=== PATIENT | male | born 1970 | race Caucasian/White ===

== ENCOUNTER 2022-05-21 09:41 | Inpatient (IN) ==
[2022-05-21] MEDS ORDERED: IOPAMIDOL 100 ML BOTTLE IV ONE (09:42)
[2022-05-21] MEDS ORDERED: ALBUTEROL SULFATE 2.5 MG/3 ML NEBULIZER NEB ONE (10:37)
[2022-05-21] MEDS ORDERED: DEXAMETHASONE 10 MG/ML VIAL IV ONE (10:37)
[2022-05-21] MEDS ORDERED: AZITHROMYCIN 500 MG in DEXTROSE 5% IN WATER 250 ML IV ONE (10:37)
--- NOTE | 2022-05-21 10:40 | Emergency Department Note ---
HPI General Chief complaint: Cold/Flu Symptoms Stated complaint: sob/flu Time Seen by Provider: 05/21/22 10:01 Source: patient Mode of arrival: ambulatory Limitations: no limitations History of Present Illness HPI Narrative: Narrative: This 52 year old, intermediate frame tender COPD patient, presents complaining of worsening shortness of breath since last night. He states his albuterol inhalers have not been able to "break it". He denies fever sweats or chills but does complain of increased productivity of his cough. He is complaining of shortness of breath at rest as well as with exertion. He denies any chest pain or palpitations. Related Data Home Medications Medication Instructions Recorded Confirmed gabapentin 400 mg capsule 400 mg PO BID 10/25/21 01/06/22 Allergies Allergy/AdvReac Type Severity Reaction Status Date / Time No Known Drug Allergies Allergy Verified 05/21/22 09:52 Review of Systems ROS ROS Narrative: Narrative: All systems ED: reviewed and negative except as stated. [facility] Narrative Patient History Narrative: Narrative: Medical/Surgical/Family History All Active Problems (Updated 01/06/22 @ 10:18 by Karine Zavala PA-C) Foot ulceration (Acute) Post-op pain (Acute) Cellulitis of right foot (Acute) Arterial stenosis (Acute) Exam Narrative Narrative: Narrative:General: No acute distress alert and oriented x3 answers questions cogently. Skin: Well perfused and hydrated without exanthem. Lungs: Moderate air movement. Positive expiratory wheezes heard bilaterally. No rhonchi or rails. CV: Regular rate and rhythm without murmurs clicks rubs or gallops. Periphery: No peripheral edema. General Limitations: no limitations Course Vital Signs Vital signs: Vital Signs Temperature 101.6 F H 05/21/22 09:48 Pulse Rate 124 H 05/21/22 09:48 Respiratory Rate 30 H 05/21/22 09:48 Blood Pressure 93/66 05/21/22 09:48 Pulse Oximetry (%) 94 05/21/22 09:48 Oxygen Delivery Method 05/21/22 09:48 Temperature 100.3 F H 05/21/22 13:01 Pulse Rate 104 H 05/21/22 15:31 Respiratory Rate 20 05/21/22 15:54 Blood Pressure 112/59 05/21/22 15:31 Pulse Oximetry (%) 93 05/21/22 15:54 Oxygen Delivery Method 05/21/22 15:54 Oxygen Flow Rate (L/min) 3 05/21/22 15:54 MDM MDM Narrative Medical decision making narrative: Narrative:Pulmonary parenchymal windows show mild centrilobular emphysema consisting of chronic bronchitis with elevated lung volumes wall thickening/dilatation of bronchi. There are scattered tiny bullae predominantly within the upper lobes and also scattered scarring throughout both lungs. A moderate vague groundglass infiltrate has developed in the inferior right lower lobe with atelectasis along the minor fissure. Moderate patchy groundglass infiltrate is also developed in the lingular region. No nodules identified. The pleural spaces are unremarkable-no effusions. Mediastinal windows show the heart is grossly normal in size and configuration. The pulmonary arteries are normal diameter and well-opacified without evidence of embolus. Thoracic aorta is also normal diameter and well-opacified. Mediastinal adenopathy is stable since chest CT nearly one year prior: 2.6 cm right suprahilar node, 2.5 cm subcarinal node and 2-3 lymph nodes the right paratracheal region ranging up to 14 mm. Esophagus is grossly normal. Two nodules inferior right thyroid lobe 3 cm and 2.5 cm with calcifications are stable. There are almost certainly benign adenomas. Bones and soft tissues the chest wall are normal. Images through the superior abdomen are unremarkable. IMPRESSION: 1. No evidence of pulmonary embolus. 2. Moderate, vague, groundglass infiltrates in the inferior right lower lobe and lingula. Suspect infection or, less likely, aspiration. 3. Mild centrilobular emphysema. 4. Mediastinal adenopathy stable since chest CT nearly one year prior and almost certainly benign. 5. Two inferior right thyroid nodules are stable and most likely benig The patient's diagnoses would be COPD exacerbation and pneumonia. He has been treated with azithromycin but is satting 88% on 2 L he will need to come into the hospital. Sepsis Sepsis Identified: No Lab Data Labs: Lab Results 05/21/22 Range/Units 13:19 D-Dimer 0.85 H (0.27-0.50) ug/mL ED POC Tests ED POC Tests: CM - Influenza A Negative CM - Influenza B Negative CM - SARS Antigen Negative Discharge Plan Patient/Caregiver Discharge Instructions Pt seen by QUALITY TECHNICIAN/PA only: No Patient Disposition: Xfer Acute [facility] Follow up with: No,PCP [Primary Care Provider] - Prescriptions: No Action gabapentin 400 mg capsule 400 mg PO BID
[2022-05-21] MEDS ORDERED: MAGNESIUM SULFATE 8.12 MEQ/2 ML VIAL IV ONE (10:41)
[2022-05-21] MEDS ORDERED: MAGNESIUM SULFATE 8.12 MEQ in DEXTROSE 5% IN WATER 50 ML IV ONE (10:43)
[2022-05-21] MEDS ORDERED: ACETAMINOPHEN 325 MG TABLET PO ONE (11:30)
--- NOTE | 2022-05-21 11:43 | XRay Report ---
CLINICAL INFORMATION: COPD COMPARISON: 06/14/2021 TECHNIQUE: Portable FINDINGS: The heart size, mediastinum and pulmonary vessels are unremarkable. Minor bibasilar atelectasis noted.. There are no effusions. The bones and soft tissues are within normal limits. IMPRESSION: Normal chest. Interpreted and Authenticated by: Wade Hutchins 05/21/22
[2022-05-21] MEDS ORDERED: IPRATROPIUM/ALBUTEROL 3 ML AMPUL.NEB NEB ONE (13:34)
--- NOTE | 2022-05-21 15:40 | Cat Scan Report ---
CLINICAL INFORMATION: Elevated d-dimer and dyspnea COMPARISON: Chest CT 06/15/2021. TECHNIQUE: 80ml of Isovue-370 were injected intravenously. Using SmartPrep to maximize pulmonary artery opacification, .625mm helical slices were obtained from the lung apices through the lung bases. Following reconstruction, 2.5 mm sagittal, coronal, and axial reformations were processed. The exam was reviewed at mediastinal, lung, and bone windows. The exam was performed using radiation dose optimization techniques including, but not limited to, automated exposure control, adjustment of the mA and/or kV according to patient size and use of iterative reconstruction technique. FINDINGS: Pulmonary parenchymal windows show mild centrilobular emphysema consisting of chronic bronchitis with elevated lung volumes wall thickening/dilatation of bronchi. There are scattered tiny bullae predominantly within the upper lobes and also scattered scarring throughout both lungs. A moderate vague groundglass infiltrate has developed in the inferior right lower lobe with atelectasis along the minor fissure. Moderate patchy groundglass infiltrate is also developed in the lingular region. No nodules identified. The pleural spaces are unremarkable-no effusions. Mediastinal windows show the heart is grossly normal in size and configuration. The pulmonary arteries are normal diameter and well-opacified without evidence of embolus. Thoracic aorta is also normal diameter and well-opacified. Mediastinal adenopathy is stable since chest CT nearly one year prior: 2.6 cm right suprahilar node, 2.5 cm subcarinal node and 2-3 lymph nodes the right paratracheal region ranging up to 14 mm. Esophagus is grossly normal. Two nodules inferior right thyroid lobe 3 cm and 2.5 cm with calcifications are stable. There are almost certainly benign adenomas. Bones and soft tissues the chest wall are normal. Images through the superior abdomen are unremarkable. IMPRESSION: 1. No evidence of pulmonary embolus. 2. Moderate, vague, groundglass infiltrates in the inferior right lower lobe and lingula. Suspect infection or, less likely, aspiration. 3. Mild centrilobular emphysema. 4. Mediastinal adenopathy stable since chest CT nearly one year prior and almost certainly benign. 5. Two inferior right thyroid nodules are stable and most likely benign. Interpreted and Authenticated by: Wade Hutchins 05/21/22
[2022-05-21 17:24] LABS: Basophils # (Auto) 0.05 K/mcL (0.00-0.30); Basophils % (Auto) 0.5 % (0.0-2.0); Eosinophils # (Auto) 0.01 K/mcL (0.00-0.70); Eosinophils % (Auto) 0.1 % (0.0-7.0); Hematocrit 42.5 % (40.1-51.0); Hemoglobin 14.4 g/dL (13.7-17.5); Lymphocytes # (Auto) 0.96 K/mcL (1.50-4.80); Lymphocytes % (Auto) 9.6 % (15.5-49.0); Mean Cell Volume 91.4 fL (80.0-100.0); Mean Corpuscular HGB Conc 33.9 g/dL (31.0-36.0); Mean Platelet Volume 9.5 fL (8.8-12.5); Monocytes # (Auto) 1.03 K/mcL (0.10-0.90); Monocytes % (Auto) 10.3 % (1.0-12.0); Neutrophils % (Auto) 79.1 % (38.0-78.0); Platelet Count 312 K/mcL (140-440); RBC 4.65 M/mcL (4.63-6.08); Red Cell Distribution Width 14.1 % (11.5-14.5)
--- NOTE | 2022-05-21 17:31 | Emergency Department Note ---
HPI General Chief complaint: Cold/Flu Symptoms Stated complaint: sob/flu Time Seen by Provider: 05/21/22 10:01 Source: patient Mode of arrival: ambulatory Limitations: no limitations History of Present Illness HPI Narrative: Narrative: Resents complaining of increased shortness of breath and cough over the last 24 to 48 hours. He denies any chest pain or palpitations. Has a history of COPD he has a nebulizer machine at home but no oxygen. Related Data Home Medications Medication Instructions Recorded Confirmed gabapentin 400 mg capsule 400 mg PO BID 10/25/21 01/06/22 Allergies Allergy/AdvReac Type Severity Reaction Status Date / Time No Known Drug Allergies Allergy Verified 05/21/22 09:52 Review of Systems ROS ROS Narrative: Narrative: All systems ED: reviewed and negative except as stated. [facility] Narrative Patient History Narrative: Narrative: Medical/Surgical/Family History All Active Problems (Updated 01/06/22 @ 10:18 by Karine Zavala PA-C) Foot ulceration (Acute) Post-op pain (Acute) Cellulitis of right foot (Acute) Arterial stenosis (Acute) Exam Narrative Narrative: NarratNo acute distress General: Mild distress secondary to dyspnea. Skin: Well perfused and hydrated without exanthem. Lungs: Expiratory wheezing bilaterally with moderate movement of airflow. No rhonchi heard. CV: Regular rate and rhythm without murmurs clicks rubs or gallops. Periphery: No peripheral edema. General Limitations: no limitations Course Vital Signs Vital signs: Vital Signs Temperature 101.6 F H 05/21/22 09:48 Pulse Rate 124 H 05/21/22 09:48 Respiratory Rate 30 H 05/21/22 09:48 Blood Pressure 93/66 05/21/22 09:48 Pulse Oximetry (%) 94 05/21/22 09:48 Oxygen Delivery Method 05/21/22 09:48 Temperature 100.3 F H 05/21/22 13:01 Pulse Rate 92 H 05/21/22 17:01 Respiratory Rate 20 05/21/22 17:01 Blood Pressure 106/66 05/21/22 17:01 Pulse Oximetry (%) 97 05/21/22 17:01 Oxygen Delivery Method 05/21/22 16:31 Oxygen Flow Rate (L/min) 3 05/21/22 16:31 [facility] MDM Narrative Medical decision making narrative: Narrative patient was treated with albuterol with very little improvement. He was given additional Decadron and mag sulfate and his wheezing near disappeared, but the patient was still satting at only 88-89% on 2 L. D-dimer came back elevated and a CTA was obtained and was within normal limits. The CTA referred to groundglass opacities in the patient will be treated for potential pneumonia as well with azithromycin. Believe the patient needs to come in for several days of treatment. Sepsis Sepsis Identified: No Lab Data Result diagrams: 05/21/22 13:19 Labs: Lab Results 05/21/22 Range/Units 13:19 D-Dimer 0.85 H (0.27-0.50) ug/mL ED POC Tests ED POC Tests: CM - Influenza A Negative CM - Influenza B Negative CM - SARS Antigen Negative Discharge Plan Patient/Caregiver Discharge Instructions Pt seen by CONCRETE FLOOR INSTALLER/PA only: No Patient Disposition: Xfer Acute [facility] Follow up with: No,PCP [Primary Care Provider] - Prescriptions: No Action gabapentin 400 mg capsule 400 mg PO BID
[2022-05-21 17:33] LABS: POC Calcium, Ionized 1.12 (1.16-1.32); POC Creatinine 1.1 (0.6-1.2); POC Potassium 3.8 (3.3-5.1)
--- NOTE | 2022-05-21 18:29 | Internal Med History&Physical ---
HPI History of Present Illness Patient information: Note initiated : 05/21/22 at 6:20 pm Service Date, if different from initiated Date: [] Patient: Huber Reyes a 52 y/o M admitted on for sob/flu. Chief Complaint: [] History of present illness: Mr. Reyes is a 52 year old M Complains of headache nausea vomiting fever chills body aches shortness of breath cough productive of white sputum which all started yesterday. Patient does not have a primary care doctor as he is recently moved from [place]. Rapid flu and COVID in ED were negative. Patient feels extremely weak. In the ED he was evaluated and found to be tachycardic 110's, temperature of 100.3. Is hypoxic at 85. CTA chest showed moderate groundglass filtrate inferior right lobe Patient started on IV antibiotics in the ED. Given concern of COPD as well patient was given glucocorticoids and nebulizer treatment. He felt the nebulizer treatments helped. Patient is a active smoker. Review of Systems: Pertinent positives as above. Denies headache/fever/chills/nausea/vomiting /chest or abdominal pain/cough/dyspnea/diarrhea. Remaining 10 point review of system reviewed negative PFSH PFSH All Active Problems (Updated 01/06/22 @ 10:18 by Karine Zavala PA-C) Foot ulceration (Acute) Post-op pain (Acute) Cellulitis of right foot (Acute) Arterial stenosis (Acute) MEDS/ALLERGIES Home Medications and Allergies Home Medications Medication Instructions Recorded Confirmed Type gabapentin 400 mg capsule 400 mg PO BID 10/25/21 01/06/22 History Allergies Allergy/AdvReac Type Severity Reaction Status Date / Time No Known Drug Allergies Allergy Verified 05/21/22 09:52 EXAM Constitutional Vitals: Temp Pulse Resp BP Pulse Ox O2 Del Method O2 Flow Rate 100.3 F H 96 H 18 116/75 95 3 05/21/22 13:01 05/21/22 18:01 05/21/22 18:01 05/21/22 18:01 05/21/22 18:01 05/21/22 17:31 05/21/22 17:31 Exam: General: Alert, Awake, No acute Distress, obese Eyes/N/T: EOMI, PERRL, dry MM Head/Neck: neck supple, normocephalic atraumatic CV: Tacky but regular, No murmurs, normal s1/s2 Pulm: Mild decreased BS b/l, no wheezing Abd: soft, nontender, +BS x4 Ext: no clubbing/cyanosis/edema Neuro: Alert, no focal deficits, moves all extremities, CN 2-12 grossly intact, symmetrical strength b/l upper/lower, sensations intact b/l upper/lower Skin: warm/dry DATA Data Completed and Pending Labs: Labs from last 24 hours 05/21/22 05/21/22 05/21/22 17:28 17:16 13:19 WBC RBC Hgb Hct POC Hct 45.0 MCV MCH MCHC RDW Plt Count MPV Immature Gran % (Auto) Neut % (Auto) Lymph % (Auto) [place]aines % (Auto) Eos % (Auto) Baso % (Auto) Lymph # (Auto) [place] # (Auto) Eos # (Auto) Baso # (Auto) Immature Gran # Absolute Neutrophils D-Dimer POC VBG pH 7.41 POC VBG pCO2 at Temp 35.8 L POC VBG pO2 31 POC VBG HCO3 22.8 L POC VBG Total CO2 24.0 L POC Venous O2 Sat 61.0 POC VBG Base Excess -2.0 VBG Lactic Acid 1.1 POC Sodium 136 POC Potassium 3.8 POC Chloride 102 POC Total CO2 23.0 POC BUN 14 POC Creatinine 1.1 POC Glucose 140 H POC WB Ioniz Calcium 1.12 L Procalcitonin 0.15 H 05/21/22 05/21/22 13:19 13:19 WBC 10.0 RBC 4.65 Hgb 14.4 Hct 42.5 POC Hct MCV 91.4 MCH 31.0 MCHC 33.9 RDW 14.1 Plt Count 312 MPV 9.5 Immature Gran % (Auto) 0.4 Neut % (Auto) 79.1 H Lymph % (Auto) 9.6 L Gaines % (Auto) 10.3 Eos % (Auto) 0.1 Baso % (Auto) 0.5 Lymph # (Auto) 0.96 L [place] # (Auto) 1.03 H Eos # (Auto) 0.01 Baso # (Auto) 0.05 Immature Gran # 0.04 Absolute Neutrophils 7.90 D-Dimer 0.85 H POC VBG pH POC VBG pCO2 at Temp POC VBG pO2 POC VBG HCO3 POC VBG Total CO2 POC Venous O2 Sat POC VBG Base Excess VBG Lactic Acid POC Sodium POC Potassium POC Chloride POC Total CO2 POC BUN POC Creatinine POC Glucose POC WB Ioniz Calcium Procalcitonin A/P Narrative A/P Narrative: A: *Acute hypoxic respiratory failure: *PNA(RLL): *Sepsis: 2/2 above *COPD based on imaging and smoking history: *Peripheral vascular disease w/neuropathy of LE's: on asa/plavix *Obesity: BMI 33 *Generalized weakness: 2/2 above *Tobacco abuse: P: -IV antibiotics, pending BC/SC -rvp -IVF -prn nebs/RT -CBC/chemistry -O2 supplementation and wean as able -Continue home aspirin -Continue home gabapentin -Home medication reconciliation -Smoking cessation counseling >3 minutes -PT/OT -ppx: Lovenox Time Spent With Patient Time: Total time spent is greater than 50% in coordination of care (as documented) at patient's floor/unit and/or counseling patient: Total time spent with greater than 50% in coordination of care (as documented) at patient's floor/unit and/or counseling patient:: Greater than 70 minutes
[2022-05-21 18:48] LABS: proBNP 898.5 pg/mL (<125.0)
[2022-05-21] MEDS ORDERED: POTASSIUM CHLORIDE 20 MEQ TABLET PO PRN ×2 (21:09)
[2022-05-21] MEDS ORDERED: POLYETHYLENE GLYCOL 3350 17 GM PACKET PO PRN (21:09)
[2022-05-21] MEDS ORDERED: ONDANSETRON 4 MG/2 ML VIAL IV PRN (21:09)
[2022-05-21] MEDS ORDERED: POTASSIUM CHLORIDE 40 MEQ in DEXTROSE 5% IN WATER 500 ML IV PRN (21:09)
[2022-05-21] MEDS ORDERED: SENNOSIDES 1 TABLET PO PRN (21:09)
[2022-05-21] MEDS ORDERED: MAGNESIUM SULFATE 2 GM/50 ML BAG IV PRN (21:09)
[2022-05-21] MEDS ORDERED: AZITHROMYCIN 500 MG in DEXTROSE 5% IN WATER 250 ML IV SCH (21:09)
[2022-05-21] MEDS ORDERED: IPRATROPIUM/ALBUTEROL 3 ML AMPUL.NEB NEB PRN (21:09)
[2022-05-21] MEDS ORDERED: ACETAMINOPHEN 325 MG TABLET PO PRN (21:09)
[2022-05-21] MEDS ORDERED: cefTRIAXone 1 GM in DEXTROSE 5% IN WATER 50 ML IV SCH (21:09)
[2022-05-21 21:44] LABS: Band Neutrophils % 7 % (0-10); Lymphocytes % 11 % (15-49); Monocytes % (Manual) 7 % (1-12); Platelet Estimate NORMAL (Normal); RBC Morphology NORMAL (Normal); Reactive Lymphocytes 2 % (0-2); Segmented Neutrophils % 73 % (38-78)
[2022-05-21] MEDS ORDERED: guaiFENesin/DEXTROMETHORPHAN ORAL SOL ONE (23:15)
[2022-05-21] MEDS: 0.9 % SODIUM CHLORIDE 10 ML SYRINGE IV SCH (23:33)
[2022-05-21] MEDS: cefTRIAXone 1 GM VIAL IV SCH (23:33)
[2022-05-21] MEDS: IBUPROFEN 200 MG TABLET PO PRN (23:34)
[2022-05-21] MEDS: guaiFENesin/DEXTROMETHORPHAN ORAL SOL PO PRN (23:35)
[2022-05-21] MEDS: IPRATROPIUM/ALBUTEROL 3 ML AMPUL.NEB NEB SCH (23:41)
[2022-05-21] MEDS: DOCUSATE SODIUM 100 MG CAPSULE PO SCH (23:41)
[2022-05-22] MEDS: 0.9 % SODIUM CHLORIDE 10 ML SYRINGE IV SCH ×3 (06:12→21:00)
[2022-05-22 06:33] LABS: Basophils # (Auto) 0.01 K/mcL (0.00-0.30); Basophils % (Auto) 0.1 % (0.0-2.0); Eosinophils # (Auto) 0 K/mcL (0.00-0.70); Eosinophils % (Auto) 0 % (0.0-7.0); Hematocrit 40.3 % (40.1-51.0); Hemoglobin 14.1 g/dL (13.7-17.5); Lymphocytes # (Auto) 1.08 K/mcL (1.50-4.80); Lymphocytes % (Auto) 13.5 % (15.5-49.0); Mean Cell Volume 92.4 fL (80.0-100.0); Mean Platelet Volume 9.3 fL (8.8-12.5); Monocytes # (Auto) 0.72 K/mcL (0.10-0.90); Neutrophils % (Auto) 76.9 % (38.0-78.0); Platelet Count 265 K/mcL (140-440); RBC 4.36 M/mcL (4.63-6.08); Red Cell Distribution Width 14.3 % (11.5-14.5)
[2022-05-22 07:12] LABS: ALT/SGPT 22 U/L (<40); AST/SGOT 19 U/L (<40); Albumin 3.7 gm/dL (3.2-5.2); Albumin/Globulin Ratio 1.2 (1.0-2.3); Alkaline Phosphatase 91 U/L (39-117); Bilirubin,Direct < 0.2 mg/dL (0-0.3); Bilirubin,Total 0.2 mg/dL (0.1-1.0); Blood Urea Nitrogen 17 mg/dL (6-20); Calcium 8.9 mg/dL (8.6-10.4); Carbon Dioxide 23 mmol/L (22-30); Chloride 101 mmol/L (96-108); Globulin 3.1 gm/dL (2.2-3.7); Glomerular Filtration Rate 87; Glucose 147 mg/dL (70-105); Lactate Dehydrogenase 176 U/L (135-225); Triglycerides 133 mg/dL (<150); Uric Acid 6.3 mg/dL (2.5-8.0)
--- NOTE | 2022-05-22 08:16 | Internal Med Progress Note ---
SUBJECTIVE Subjective Patient information: Note initiated : 05/22/22 at 8:10 am Service Date, if different from initiated Date: [] Patient: Huber Reyes a 52 y/o M admitted on 05/21/22 for sob/flu. Chief Complaint: [] Interval history: History of present illness: Mr. Reyes is a 52 year old M Complains of headache nausea vomiting fever chills body aches shortness of breath cough productive of white sputum which all started yesterday. Patient does not have a primary care doctor as he is recently moved from [place]. Rapid flu and COVID in ED were negative. Patient feels extremely weak. In the ED he was evaluated and found to be tachycardic 110's, temperature of 100.3. Is hypoxic at 85. CTA chest showed moderate groundglass filtrate inferior right lobe Patient started on IV antibiotics in the ED. Given concern of COPD as well patient was given glucocorticoids and nebulizer treatment. He felt the nebulizer treatments helped. Patient is a active smoker. 05/22 pcr test with positive covid and flu. Patient feeling weak and tired but little bit better. Oxygen requirement improving. Has cough and shortness of breath. Patient did not get flu vaccine. Patient got original COVID-vaccine but not booster. Review of Systems: denies headache/fever/chills/nausea/vomiting/chest or abdominal pain/diarrhea. Otherwise see above. Constitutional Vitals: Vital Signs Temp Pulse Resp BP Pulse Ox O2 Del Method O2 Flow Rate 98.1 F 72 20 115/69 94 3 05/21/22 23:46 05/22/22 04:00 05/22/22 04:00 05/21/22 23:46 05/22/22 04:00 05/22/22 04:00 05/21/22 23:46 Period Temp Pulse Resp BP Sys/Garcia Pulse Ox O2 Del Method O2 Flow Rate Last 24 Hr 98.1 F-101.6 F 72-127 18-30 89-130/57-96 85-97 Nasal Cannula- Room Air 3-3 Intake and Output 05/21/22 05/22/22 05/22/22 19:59 03:59 11:59 Intake Total 52 400 Balance 52 400 Weight 98.43 kg Intake & Output: Intake & Output 05/21/22 05/22/22 05/22/22 19:59 03:59 11:59 Intake Total 52 400 Balance 52 400 Weight 98.43 kg Intake: IV 52 Magnesium Sulfate 8.12 Meq In 52 Dextrose 5% in Water 50 ml @ 52 mls/hr IV ONCE ONE Rx#: [id number] Oral 400 Other: Meal Nourishment/Supplement Percent of Meal Consumed 50% Feeding Ability Independent Nourishment/Supplement name tuna sandwich, applesauce, lemon confederated coos # Voids 1 Exam: General: Alert, Awake, No acute Distress, obese Eyes/N/T: EOMI, Head/Neck: neck supple, CV: RRR, No murmurs, Pulm: Mild decreased BS b/l, no wheezing Abd: soft, nontender, +BS x4 Ext: no clubbing/cyanosis/edema Neuro: Alert, no focal deficits, moves all extremities, Skin: warm/dry OBJ DATA Labs CBC & Chem 7: 05/22/22 05:48 05/22/22 05:48 Labs: Abnormal Lab Results 05/22/22 05/22/22 05/21/22 05:48 05:48 17:28 RBC 4.36 L Neut % (Auto) Lymph % (Auto) 13.5 L Lymph # (Auto) 1.08 L [place] # (Auto) Lymphocytes % D-Dimer POC VBG pCO2 at Temp POC VBG HCO3 POC VBG Total CO2 Glucose 147 H POC Glucose 140 H POC WB Ioniz Calcium 1.12 L C-Reactive Protein NT-Pro-B Natriuret Pep Procalcitonin 05/21/22 05/21/22 05/21/22 17:16 13:19 13:19 RBC Neut % (Auto) Lymph % (Auto) Lymph # (Auto) [place] # (Auto) Lymphocytes % 11 L D-Dimer POC VBG pCO2 at Temp 35.8 L POC VBG HCO3 22.8 L POC VBG Total CO2 24.0 L Glucose POC Glucose POC WB Ioniz Calcium C-Reactive Protein 5.10 H NT-Pro-B Natriuret Pep Procalcitonin 05/21/22 05/21/22 05/21/22 13:19 13:19 13:19 RBC Neut % (Auto) 79.1 H Lymph % (Auto) 9.6 L Lymph # (Auto) 0.96 L [place] # (Auto) 1.03 H Lymphocytes % D-Dimer POC VBG pCO2 at Temp POC VBG HCO3 POC VBG Total CO2 Glucose POC Glucose POC WB Ioniz Calcium C-Reactive Protein NT-Pro-B Natriuret Pep 898.5 H Procalcitonin 0.15 H 05/21/22 13:19 RBC Neut % (Auto) Lymph % (Auto) Lymph # (Auto) [place] # (Auto) Lymphocytes % D-Dimer 0.85 H POC VBG pCO2 at Temp POC VBG HCO3 POC VBG Total CO2 Glucose POC Glucose POC WB Ioniz Calcium C-Reactive Protein NT-Pro-B Natriuret Pep Procalcitonin Meds: Medications Acetaminophen (Acetaminophen 325 Mg Tablet) 650 mg PO Q6HP PRN; Protocol PRN Reason: Per Pain Protocol/Fever > 101 Albuterol/Ipratropium (Ipratropium/Albuterol 3 Ml Ampul.Neb) 3 ml NEB Q4HP PRN PRN Reason: Shortness Of Breath Albuterol/Ipratropium (Ipratropium/Albuterol 3 Ml Ampul.Neb) 3 ml NEB BID [facility] Last Admin: 05/21/22 23:41 Dose: 3 ml Ceftriaxone Sodium (Ceftriaxone 1 Gm Vial) 1 gm IV Q24H LORENZO Last Admin: 05/21/22 23:33 Dose: 1 gm Docusate Sodium (Docusate Sodium 100 Mg Capsule) 100 mg PO BID [facility] Last Admin: 05/21/22 23:41 Dose: 100 mg Enoxaparin Sodium (Enoxaparin 40 Mg/0.4 Ml Syringe) 40 mg SQ DAILY [facility] Guaifenesin (Guaifenesin/Dextromethorphan Oral Adri) 10 ml PO Q4HP PRN PRN Reason: Cough Last Admin: 05/21/22 23:35 Dose: 10 ml Potassium Chloride 40 meq/ (Dextrose) 520 mls @ 130 mls/hr IV UD PRN PRN Reason: Potassium < 3 Magnesium Sulfate (Magnesium Sulfate) 2 gm in 50 mls @ 50 mls/hr IV UD PRN PRN Reason: Magnesium </= 1.6 Azithromycin 500 mg/ Dextrose 250 mls @ 250 mls/hr IV Q24H [facility]; Protocol Stop: 05/23/22 09:59 Ibuprofen (Ibuprofen 200 Mg Tablet) 400 mg PO Q6HP PRN; Protocol PRN Reason: Per Pain Protocol Last Admin: 05/21/22 23:34 Dose: 400 mg Ondansetron HCl (Ondansetron 4 Mg/2 Ml Vial) 4 mg IV Q4HP PRN PRN Reason: Nausea And Vomiting Polyethylene Glycol (Polyethylene Glycol 3350 17 Gm Packet) 17 gm PO DAILYP PRN PRN Reason: Constipation Potassium Chloride (Potassium Chloride 20 Meq Tablet) 40 meq PO UD PRN PRN Reason: Potssium is 3-3.5 Potassium Chloride (Potassium Chloride 20 Meq Tablet) 40 meq PO UD PRN PRN Reason: Potassium < 3 Senna (Sennosides 1 Tablet) 2 tab PO DAILYP PRN PRN Reason: Constipation Sodium Chloride (0.9 % Sodium Chloride 10 Ml Syringe) 10 ml IV Q8 LORENZO Last Admin: 05/22/22 06:12 Dose: Not Given A/P Narrative A/P Narrative: A: *Acute hypoxic respiratory failure: - *PNA(Covid): *Flu A(+): *Sepsis: 2/2 above *COPD based on imaging and smoking history: *Peripheral vascular disease w/neuropathy of LE's: on asa/plavix *Obesity: BMI 33 *Generalized weakness: 2/2 above *Tobacco abuse: P: -Dexa/Remdes -Tamiflu -empric antibiotics, pending BC/SC -prn nebs/RT -CBC/chemistry -O2 supplementation and wean as able -Continue home aspirin -Continue home gabapentin -Smoking cessation counseling -PT/OT -ppx: Lovenox Time Spent With Patient Time: Total time spent is greater than 50% in coordination of care (as documented) at patient's floor/unit and/or counseling patient: Total time spent with greater than 50% in coordination of care (as documented) at patient's floor/unit and/or counseling patient:: 35 - 50 minutes QUALITY VTE Deep Vein Thrombosis/Pulmonary Embolism Present on Admission: No
[2022-05-22] MEDS: AZITHROMYCIN 500 MG in DEXTROSE 5% IN WATER 250 ML IV SCH (08:47)
[2022-05-22] MEDS ORDERED: REMDESIVIR 200 MG in 0.9 % SODIUM CHLORIDE 250 ML IV ONE (09:00)
[2022-05-22] MEDS: DEXAMETHASONE 4 MG TABLET PO SCH (09:07)
[2022-05-22] MEDS: DOCUSATE SODIUM 100 MG CAPSULE PO SCH ×2 (09:07→21:00)
[2022-05-22] MEDS: ASPIRIN 81 MG TAB.CHEW PO SCH (09:07)
[2022-05-22] MEDS: ENOXAPARIN 40 MG/0.4 ML SYRINGE SQ SCH (09:07)
[2022-05-22] MEDS: GABAPENTIN 400 MG CAPSULE PO SCH ×2 (09:12→21:00)
[2022-05-22] MEDS: cefTRIAXone 1 GM VIAL IV SCH (10:40)
[2022-05-22] MEDS: OSELTAMIVIR PHOSPHATE 75 MG CAPSULE PO SCH ×2 (11:08→21:00)
[2022-05-22] MEDS: IPRATROPIUM/ALBUTEROL 3 ML AMPUL.NEB NEB SCH ×2 (15:12→21:00)
--- NOTE | 2022-05-22 20:03 | Discharge Summary ---
Discharge Provider Provider IMPORTANT FOLLOW-UP INFORMATION FOR PCP: Patient information: Note initiated : 05/22/22 at 8:02 pm Service Date, if different from initiated Date: [] Patient: Huber Reyes 52 y/o M admitted on 05/21/22 for sob/flu. Chief Complaint: [] Date of admission: 05/21/22 20:28 Discharge date: 05/23/22 Primary care physician: PCP No Consults: 05/21/22 Consult to Physician [CONS] Stat Comment: Consulting Provider: Rosalino Frances Reason For Exam: Physician to Consult COURSE Hospital Course Hospital course: History of present illness: Mr. Reyes is a 52 year old M Complains of headache nausea vomiting fever chills body aches shortness of breath cough productive of white sputum which all started yesterday. Patient does not have a primary care doctor as he is recently moved from [place]. Rapid flu and COVID in ED were negative. Patient feels extremely weak. In the ED he was evaluated and found to be tachycardic 110's, temperature of 100.3. Is hypoxic at 85. CTA chest showed moderate groundglass filtrate inferior right lobe Patient started on IV antibiotics in the ED. Given concern of COPD as well patient was given glucocorticoids and nebulizer treatment. He felt the nebulizer treatments helped. Patient is a active smoker. 05/22 pcr test with positive covid and flu. Patient feeling weak and tired but little bit better. Oxygen requirement improving. Has cough and shortness of breath. Patient did not get flu vaccine. Patient got original COVID-vaccine but not booster. 05/23 Patient feeling a lot better today. Trial on room air today and doing well up ambulatory in the room on room air maintaining sats. Stable for discharge. A: *Acute hypoxic respiratory failure: *PNA(Covid): *Flu A(+): *Sepsis: 2/2 above *COPD based on imaging and smoking history: *Peripheral vascular disease w/neuropathy of LE's: on asa/plavix *Obesity: BMI 33 *Generalized weakness: 2/2 above *Tobacco abuse: P: -Tamiflu -alb IH -Referral to pulmonology for PFTs/COPD eval Discharge diagnosis: Acute hypoxic respiratory failure COVID-pneumonia influenza A sepsis Secondary discharge diagnosis: COPD peripheral vascular disease obesity generalized weakness tobacco abuse Time Spent with Patient Time attestation: Total time spent providing and/or coordinating discharge services: Time spent: Greater than 30 minutes EXAM Constitutional Vitals: Temp Pulse Resp BP Pulse Ox O2 Del Method O2 Flow Rate 97.9 F 88 16 109/79 96 3 05/22/22 16:00 05/22/22 16:00 05/22/22 16:00 05/22/22 16:00 05/22/22 16:00 05/22/22 16:00 05/22/22 16:00 Discharge Data Data Completed and Pending Labs on day of discharge: Labs from last 24 hours 05/22/22 05/22/22 05/21/22 05:48 05:48 13:19 WBC 8.0 RBC 4.36 L Hgb 14.1 Hct 40.3 MCV 92.4 MCH 32.3 MCHC 35.0 RDW 14.3 Plt Count 265 MPV 9.3 Immature Gran % (Auto) 0.5 Neut % (Auto) 76.9 Lymph % (Auto) 13.5 L [place] % (Auto) 9.0 Eos % (Auto) 0 Baso % (Auto) 0.1 Lymph # (Auto) 1.08 L [place] # (Auto) 0.72 Eos # (Auto) 0 Baso # (Auto) 0.01 Seg Neutrophils % 73 Band Neutrophils % 7 Lymphocytes % 11 L Monocytes % (Manual) 7 Immature Gran # 0.04 Absolute Neutrophils 6.14 Reactive Lymphocytes 2 Platelet Estimate Normal RBC Morphology Normal Sodium 136 Potassium 4.3 Chloride 101 Carbon Dioxide 23 Anion Gap 12.0 BUN 17 Creatinine 1.0 GFR Calculation 87 Glucose 147 H Uric Acid 6.3 Calcium 8.9 Phosphorus 4.0 Magnesium 2.5 Total Bilirubin 0.2 Direct Bilirubin < 0.2 GGT 28 AST 19 ALT 22 Alkaline Phosphatase 91 Lactate Dehydrogenase 176 Total Protein 6.8 Albumin 3.7 Globulin 3.1 Albumin/Globulin Ratio 1.2 Triglycerides 133 Preliminary micro results at discharge 05/22/22 00:42 Gram Stain - Preliminary Sputum source - Induced Discharge Plan Patient/Caregiver Discharge Instructions Activity: increase activity as tolerated Diet: Regular Diet Activity Restrictions/Additional Instructions: Follow-up with PCP in 3 to 7 days. Referral to see pulmonology in 3 to 14 days for evaluation of COPD, PFTs Prescriptions: New albuterol sulfate 90 mcg/actuation HFA aerosol inhaler 2 puff inhalation Q6H PRN (Reason: shortness of breath or wheezing) Qty: 6.7 0RF oseltamivir 75 mg Capsule 75 mg PO BID Qty: 7 0RF Continued gabapentin 400 mg capsule 400 mg PO BID clopidogrel 75 mg tablet 1 tab PO QAM aspirin 81 mg tablet,delayed release (DR/EC) 1 tab PO QAM varenicline 1 mg tablet 1 tab PO BID Follow Up Plan Patient Disposition: Home, Self-Care Overall status at discharge: patient is progressing back to baseline Discharge Orders: Discharge Order (Routine); Ordered 05/23/22 Ordered By: Rosalino Frances [facility] Deep Vein Thrombosis/Pulmonary Embolism Present on Admission: No
[2022-05-22] MEDS: IBUPROFEN 200 MG TABLET PO PRN (21:01)
[2022-05-22] MEDS: guaiFENesin/DEXTROMETHORPHAN ORAL SOL PO PRN (23:47)
[2022-05-23] MEDS: 0.9 % SODIUM CHLORIDE 10 ML SYRINGE IV SCH (05:51)
[2022-05-23] MEDS: DOCUSATE SODIUM 100 MG CAPSULE PO SCH (08:09)
[2022-05-23] MEDS: GABAPENTIN 400 MG CAPSULE PO SCH (08:09)
[2022-05-23] MEDS: ASPIRIN 81 MG TAB.CHEW PO SCH (08:09)
[2022-05-23] MEDS: DEXAMETHASONE 4 MG TABLET PO SCH (08:10)
[2022-05-23] MEDS: OSELTAMIVIR PHOSPHATE 75 MG CAPSULE PO SCH (08:10)
[2022-05-23] MEDS: ENOXAPARIN 40 MG/0.4 ML SYRINGE SQ SCH (08:11)
--- NOTE | 2022-05-23 08:30 | Internal Med Progress Note ---
SUBJECTIVE Subjective Patient information: Note initiated : 05/23/22 at 8:29 am Service Date, if different from initiated Date: [] Patient: Huber Reyes a 52 y/o M admitted on 05/21/22 for sob/flu. Chief Complaint: [] Interval history: History of present illness: Mr. Reyes is a 52 year old M Complains of headache nausea vomiting fever chills body aches shortness of breath cough productive of white sputum which all started yesterday. Patient does not have a primary care doctor as he is recently moved from [place]. Rapid flu and COVID in ED were negative. Patient feels extremely weak. In the ED he was evaluated and found to be tachycardic 110's, temperature of 100.3. Is hypoxic at 85. CTA chest showed moderate groundglass filtrate inferior right lobe Patient started on IV antibiotics in the ED. Given concern of COPD as well patient was given glucocorticoids and nebulizer treatment. He felt the nebulizer treatments helped. Patient is a active smoker. 05/22 pcr test with positive covid and flu. Patient feeling weak and tired but little bit better. Oxygen requirement improving. Has cough and shortness of breath. Patient did not get flu vaccine. Patient got original COVID-vaccine but not booster. 05/23 Review of Systems: denies headache/fever/chills/nausea/vomiting/chest or abdominal pain/diarrhea. Otherwise see above. Constitutional Vitals: Vital Signs Temp Pulse Resp BP Pulse Ox O2 Del Method O2 Flow Rate 97.7 F 77 16 108/74 97 3 05/23/22 07:04 05/23/22 07:04 05/23/22 07:04 05/23/22 07:04 05/23/22 07:04 05/23/22 07:04 05/23/22 07:04 Period Temp Pulse Resp BP Sys/Garcia Pulse Ox O2 Del Method O2 Flow Rate Last 24 Hr 97.7 F-98 F 77-93 16-20 96-117/56-79 94-97 Nasal Cannula-Nasal Cannula 3-3 Intake and Output 05/22/22 05/23/22 05/23/22 19:59 03:59 11:59 Intake Total 240 800 Balance 240 800 Weight 98.43 kg 101.151 kg Intake & Output: Intake & Output 05/22/22 05/23/22 05/23/22 19:59 03:59 11:59 Intake Total 240 800 Balance 240 800 Weight 98.43 kg 101.151 kg Intake: Oral 240 800 Other: Meal Nourishment/Supplement Percent of Meal Consumed 100% Nourishment/Supplement name PB&J sandwich, applesauce # Voids 3 # Bowel Movements 1 Exam: General: Alert, Awake, No acute Distress, obese Eyes/N/T: EOMI, Head/Neck: neck supple, CV: RRR, No murmurs, Pulm: Mild decreased BS b/l, no wheezing Abd: soft, nontender, +BS x4 Ext: no clubbing/cyanosis/edema Neuro: Alert, no focal deficits, moves all extremities, Skin: warm/dry OBJ DATA Labs CBC & Chem 7: 05/22/22 05:48 05/22/22 05:48 Labs: Abnormal Lab Results 05/23/22 05/22/22 05/22/22 05:09 05:48 05:48 RBC 4.36 L Neut % (Auto) Lymph % (Auto) 13.5 L Lymph # (Auto) 1.08 L [place] # (Auto) Lymphocytes % D-Dimer POC VBG pCO2 at Temp POC VBG HCO3 POC VBG Total CO2 Glucose 147 H POC Glucose POC WB Ioniz Calcium C-Reactive Protein 2.80 H NT-Pro-B Natriuret Pep Procalcitonin 05/21/22 05/21/22 05/21/22 17:28 17:16 13:19 RBC Neut % (Auto) Lymph % (Auto) Lymph # (Auto) [place] # (Auto) Lymphocytes % D-Dimer POC VBG pCO2 at Temp 35.8 L POC VBG HCO3 22.8 L POC VBG Total CO2 24.0 L Glucose POC Glucose 140 H POC WB Ioniz Calcium 1.12 L C-Reactive Protein 5.10 H NT-Pro-B Natriuret Pep Procalcitonin 05/21/22 05/21/22 05/21/22 13:19 13:19 13:19 RBC Neut % (Auto) Lymph % (Auto) Lymph # (Auto) [place] # (Auto) Lymphocytes % 11 L D-Dimer POC VBG pCO2 at Temp POC VBG HCO3 POC VBG Total CO2 Glucose POC Glucose POC WB Ioniz Calcium C-Reactive Protein NT-Pro-B Natriuret Pep 898.5 H Procalcitonin 0.15 H 05/21/22 05/21/22 13:19 13:19 RBC Neut % (Auto) 79.1 H Lymph % (Auto) 9.6 L Lymph # (Auto) 0.96 L [place] # (Auto) 1.03 H Lymphocytes % D-Dimer 0.85 H POC VBG pCO2 at Temp POC VBG HCO3 POC VBG Total CO2 Glucose POC Glucose POC WB Ioniz Calcium C-Reactive Protein NT-Pro-B Natriuret Pep Procalcitonin Meds: Medications Acetaminophen (Acetaminophen 325 Mg Tablet) 650 mg PO Q6HP PRN; Protocol PRN Reason: Per Pain Protocol/Fever > 101 Albuterol/Ipratropium (Ipratropium/Albuterol 3 Ml Ampul.Neb) 3 ml NEB Q4HP PRN PRN Reason: Shortness Of Breath Albuterol/Ipratropium (Ipratropium/Albuterol 3 Ml Ampul.Neb) 3 ml NEB BID [facility] Last Admin: 05/22/22 21:00 Dose: 3 ml Aspirin (Aspirin 81 Mg Tab.Chew) 81 mg PO DAILY [facility] Last Admin: 05/23/22 08:09 Dose: 81 mg Ceftriaxone Sodium (Ceftriaxone 1 Gm Vial) 1 gm IV Q24H [facility] Last Admin: 05/22/22 10:40 Dose: 1 gm Dexamethasone (Dexamethasone 4 Mg Tablet) 6 mg PO DAILY [facility] Last Admin: 05/23/22 08:10 Dose: 6 mg Docusate Sodium (Docusate Sodium 100 Mg Capsule) 100 mg PO BID [facility] Last Admin: 05/23/22 08:09 Dose: 100 mg Enoxaparin Sodium (Enoxaparin 40 Mg/0.4 Ml Syringe) 40 mg SQ DAILY [facility] Last Admin: 05/23/22 08:11 Dose: 40 mg Gabapentin (Gabapentin 400 Mg Capsule) 400 mg PO BID [facility] Last Admin: 05/23/22 08:09 Dose: 400 mg Guaifenesin (Guaifenesin/Dextromethorphan Oral Adri) 10 ml PO Q4HP PRN PRN Reason: Cough Last Admin: 05/22/22 23:47 Dose: 10 ml Potassium Chloride 40 meq/ (Dextrose) 520 mls @ 130 mls/hr IV UD PRN PRN Reason: Potassium < 3 Magnesium Sulfate (Magnesium Sulfate) 2 gm in 50 mls @ 50 mls/hr IV UD PRN PRN Reason: Magnesium </= 1.6 Azithromycin 500 mg/ Dextrose 250 mls @ 250 mls/hr IV Q24H [facility]; Protocol Stop: 05/23/22 09:59 Last Infusion: 05/22/22 10:36 Dose: Infused REMDESIVIR 100 mg/ Sodium (Chloride) 250 mls @ 500 mls/hr IV Q24H [facility] Stop: 05/26/22 09:29 Ibuprofen (Ibuprofen 200 Mg Tablet) 400 mg PO Q6HP PRN; Protocol PRN Reason: Per Pain Protocol Last Admin: 05/22/22 21:01 Dose: 400 mg Ondansetron HCl (Ondansetron 4 Mg/2 Ml Vial) 4 mg IV Q4HP PRN PRN Reason: Nausea And Vomiting Oseltamivir Phosphate (Oseltamivir Phosphate 75 Mg Capsule) 75 mg PO BID [facility] Stop: 05/26/22 21:01 Last Admin: 05/23/22 08:10 Dose: 75 mg Polyethylene Glycol (Polyethylene Glycol 3350 17 Gm Packet) 17 gm PO DAILYP PRN PRN Reason: Constipation Potassium Chloride (Potassium Chloride 20 Meq Tablet) 40 meq PO UD PRN PRN Reason: Potssium is 3-3.5 Potassium Chloride (Potassium Chloride 20 Meq Tablet) 40 meq PO UD PRN PRN Reason: Potassium < 3 Senna (Sennosides 1 Tablet) 2 tab PO DAILYP PRN PRN Reason: Constipation Sodium Chloride (0.9 % Sodium Chloride 10 Ml Syringe) 10 ml IV Q8 [facility] Last Admin: 05/23/22 05:51 Dose: Not Given A/P Narrative A/P Narrative: A: *Acute hypoxic respiratory failure: -on 3L NC *PNA(Covid): *Flu A(+): *Sepsis: 2/2 above *COPD based on imaging and smoking history: *Peripheral vascular disease w/neuropathy of LE's: on asa/plavix *Obesity: BMI 33 *Generalized weakness: 2/2 above *Tobacco abuse: P: -Dexa/Remdes -Tamiflu -empric antibiotics, pending BC/SC -prn nebs/RT -CBC/chemistry -O2 supplementation and wean as able -Continue home aspirin -Continue home gabapentin -Smoking cessation counseling -PT/OT -ppx: Lovenox Time Spent With Patient Time: Total time spent is greater than 50% in coordination of care (as documented) at patient's floor/unit and/or counseling patient: Total time spent with greater than 50% in coordination of care (as documented) at patient's floor/unit and/or counseling patient:: 35 - 50 minutes [facility]TE Deep Vein Thrombosis/Pulmonary Embolism Present on Admission: No
[2022-05-23] MEDS ORDERED: REMDESIVIR 100 MG in 0.9 % SODIUM CHLORIDE 250 ML IV SCH (09:00)
[2022-05-23] MEDS: AZITHROMYCIN 500 MG in DEXTROSE 5% IN WATER 250 ML IV SCH (09:07)
[2022-05-23] MEDS: cefTRIAXone 1 GM VIAL IV SCH (10:14)
[2022-05-23] MEDS: IPRATROPIUM/ALBUTEROL 3 ML AMPUL.NEB NEB SCH (11:31)
[2022-05-23] MEDS ORDERED: FLU VACC QS2022-23(6MOS UP)/PF 60 MCG/0.5 ML SYRINGE IM ONE (12:30)
== END 2022-05-23 13:05 | disposition home or self-care (01) | DRG 871 ==
LOC: ED 09:41 → MEDSUR 20:28
PROVIDERS: ADMIT Internal Medicine; ATTEND Internal Medicine

== ENCOUNTER 2024-03-09 09:22 | Observation (INO) ==
[2024-03-09] MEDS: HYDROmorphone 0.5 MG/0.5 ML SYRINGE IV PRN (09:46)
[2024-03-09] MEDS: PANTOPRAZOLE 40 MG VIAL IV ONE (09:46)
[2024-03-09] MEDS: PIPERACILLIN SODIUM/TAZOBACTAM 3.375 GM in DEXTROSE 5% IN WATER 50 ML IV ONE (09:46)
[2024-03-09] MEDS: NICOTINE 14 MG PATCH TOPICAL ONE (10:11)
[2024-03-09 10:54] LABS: Amphetamine Screen,Urine None detected; Barbiturate Screen,Urine None detected; Benzodiazepines Screen,Urine None detected; Cannabinoid Screen,Urine None detected; Cocaine Screen,Urine None detected; Fentanyl, Urine Screen Suspect Positive; Opiate Screen,Urine None detected; Oxycodone, Urine Screen None detected; Phencyclidine Screen,Urine None detected
[2024-03-09] MEDS ORDERED: ONDANSETRON 4 MG/2 ML VIAL IV PRN (11:22)
[2024-03-09] MEDS ORDERED: ACETAMINOPHEN 1,000 MG/100 ML BAG IV PRN (11:22)
[2024-03-09] MEDS ORDERED: ALBUTEROL SULFATE 60 PUFF INHALER INH PRN (11:29)
[2024-03-09] MEDS: 0.9 % SODIUM CHLORIDE 1,000 ML IV SCH (12:36)
[2024-03-09] MEDS: PIPERACILLIN SODIUM/TAZOBACTAM 3.375 GM in DEXTROSE 5% IN WATER 100 ML IV SCH ×2 (13:26→13:55)
[2024-03-09] MEDS: PANTOPRAZOLE 40 MG VIAL IV SCH (16:29)
[2024-03-10 06:50] LABS: Basophils # (Auto) 0.04 K/mcL (0.00-0.30); Basophils % (Auto) 0.4 % (0.0-2.0); Eosinophils # (Auto) 0.13 K/mcL (0.00-0.70); Eosinophils % (Auto) 1.3 % (0.0-7.0); Hematocrit 41.2 % (40.1-51.0); Hemoglobin 13.7 g/dL (13.7-17.5); Lymphocytes # (Auto) 2.93 K/mcL (1.50-4.80); Lymphocytes % (Auto) 28.6 % (15.5-49.0); Mean Cell Volume 94.7 fL (80.0-100.0); Mean Corpuscular HGB Conc 33.3 g/dL (31.0-36.0); Mean Platelet Volume 9.5 fL (8.8-12.5); Monocytes # (Auto) 0.71 K/mcL (0.10-0.90); Monocytes % (Auto) 6.9 % (1.0-12.0); Neutrophils % (Auto) 62.6 % (38.0-78.0); Platelet Count 279 K/mcL (140-440); RBC 4.35 M/mcL (4.63-6.08); Red Cell Distribution Width 14.2 % (11.5-14.5); WBC 10.3 K/mcL (4.5-11.0)
[2024-03-10 07:01] LABS: ALT/SGPT 20 U/L (<40); AST/SGOT 17 U/L (<40); Albumin 3.4 gm/dL (3.2-5.2); Albumin/Globulin Ratio 1.3 (1.0-2.3); Alkaline Phosphatase 79 U/L (39-117); Bilirubin,Direct < 0.2 mg/dL (0-0.3); Bilirubin,Total 0.4 mg/dL (0.1-1.0); Blood Urea Nitrogen 6 mg/dL (6-20); Calcium 8.8 mg/dL (8.6-10.4); Carbon Dioxide 25 mmol/L (22-30); Chloride 104 mmol/L (96-108); Globulin 2.7 gm/dL (2.2-3.7); Glomerular Filtration Rate 103; Glucose 115 mg/dL (70-105); Lactate Dehydrogenase 112 U/L (135-225); Potassium 3.8 mmol/L (3.3-5.1); Sodium 138 mmol/L (133-145); Triglycerides 296 mg/dL (<150); Uric Acid 4.5 mg/dL (2.5-8.0)
[2024-03-10] MEDS: NICOTINE 21 MG PATCH TOPICAL SCH (10:00)
[2024-03-10] MEDS ORDERED: KETAMINE 50 MG/ML Syringe IV ONE (16:27)
[2024-03-10] MEDS ORDERED: SUGAMMADEX SODIUM 200 MG/2 ML VIAL IV ONE (16:27)
[2024-03-10] MEDS ORDERED: fentaNYL 100 MCG/2 ML VIAL ONE (16:27)
[2024-03-10] MEDS ORDERED: PROPOFOL 200 MG/20 ML VIAL IV ONE (16:28)
[2024-03-10] MEDS ORDERED: ONDANSETRON 4 MG/2 ML VIAL ONE (16:30)
[2024-03-10] MEDS ORDERED: DEXAMETHASONE 10 MG/ML VIAL ONE (16:30)
[2024-03-10] MEDS ORDERED: ROCURONIUM 10 MG/ML ML IV ONE (16:30)
[2024-03-10] MEDS ORDERED: GLYCOPYRROLATE 0.2 MG/ML VIAL IV ONE (16:30)
[2024-03-10] MEDS ORDERED: MAGNESIUM SULFATE 2 GM/50 ML BAG IV ONE (16:49)
[2024-03-10] MEDS ORDERED: PHENYLephrine 1 MG/10 ML SYRINGE (ANEST) ONE (16:59)
[2024-03-10] MEDS ORDERED: IPRATROPIUM/ALBUTEROL 3 ML AMPUL.NEB NEB PRN (17:14)
[2024-03-10] MEDS ORDERED: ONDANSETRON 4 MG/2 ML VIAL IV PRN (17:14)
[2024-03-10] MEDS: LACTATED RINGERS 1,000 ML IV SCH (17:20)
[2024-03-10] MEDS ORDERED: KETOROLAC 30 MG/ML VIAL ONE (17:42)
[2024-03-10] MEDS: fentaNYL 100 MCG/2 ML VIAL IV PRN (17:54)
[2024-03-10] MEDS: oxyCODONE IR 5 MG TABLET PO PRN (18:56)
[2024-03-10] MEDS: 0.9 % SODIUM CHLORIDE 1,000 ML IV SCH (21:18)
== END 2024-03-11 14:50 | disposition home or self-care (01) ==
LOC: ED 09:22 → MEDSUR 09:22
PROVIDERS: ADMIT Family Medicine Adult Medicine; ATTEND Family Medicine Adult Medicine